=== PATIENT | female | born 1970 | race Caucasian/White ===

== ENCOUNTER 2021-11-25 11:29 | Emergency (ER) | payer MEDICAID ==
[~2021-11-25] VITALS: Ht 165.1 cm; Wt 66.0 kg
[2021-11-25 11:39] VITALS: BP 108/82
[2021-11-25 13:39] LABS: CLARITY URINE CLEAR (CLEAR); COLOR URINE YELLOW (YELLOW); KETONES URINE TRACE (NEGATIVE); LEUKOCYTE ESTERASE URINE NEGATIVE (NEGATIVE); NITRITE URINE NEGATIVE (NEGATIVE); OCCULT BLOOD URINE NEGATIVE (NEGATIVE); PROTEIN URINE NEGATIVE (NEGATIVE); SPECIFIC GRAVITY URINE 1.024 (1.005-1.030); UROBILINOGEN URINE 0.2 E.U./dL (0.2-1.0)
[2021-11-25] MEDS ORDERED: KETOROLAC 60MG/2ML VIAL IM STA (13:48)
[2021-11-25 14:46] LABS: BASOPHILS % 0.5 % (0.0-2.0); EOSINOPHILS % 1.9 % (0.0-5.0); HEMATOCRIT. 42.7 % (36.0-48.0); LYMPHOCYTES % 38.6 % (20.0-50.0); MEAN CORPUSCULAR HEMOGLOBIN 26.1 pg (28.0-32.0); MEAN CORPUSCULAR VOLUME 79.9 fL (81.0-99.0); MEAN PLATELET VOLUME 9.5 fl (7.4-10.4); PLATELET 179 x1000/uL (130-400); RED BLOOD CELL COUNT 5.35 mill/uL (4.2-5.4); RED CELL DISTRIBUTION WIDTH 13.1 % (11.6-14.6)
[2021-11-25 14:56] LABS: CHLORIDE 110 mEq/L (98-107)
[2021-11-25] MEDS ORDERED: CETI10CA11 PO (16:21)
[2021-11-25] MEDS ORDERED: HYDR-4622 TP (16:21)
[2021-11-25] MEDS ORDERED: NAPR-681 PO (16:21)
== END 2021-11-25 17:17 | disposition home or self-care (01) ==
LOC: ER 11:29
DX: M54.50 Low back pain, unspecified (principal); L50.9 Urticaria, unspecified; M19.90 Unspecified osteoarthritis, unspecified site; Z90.710 Acquired absence of both cervix and uterus
CPT/HCPCS: 36415; 72100; 80048; 81003; 85025; 96372; 99284; J1885

== ENCOUNTER 2022-05-27 11:20 | Emergency (ER) | payer MEDICAID ==
[~2022-05-27] VITALS: Ht 157.5 cm; Wt 73.0 kg
[~2022-05-27 11:20] MED LIST: CETI10CA11 PO; HYDR-4622 TP; NAPR-681 PO
[2022-05-27 11:31] VITALS: BP 124/71
[2022-05-27] MEDS ORDERED: ACETAMINOPHEN 325MG TABLET PO ONE (11:45)
[2022-05-27] MEDS ORDERED: IBUPROFEN 600MG TABLET PO ONE (11:45)
[2022-05-27] MEDS ORDERED: TOPUD MT (15:56)
== END 2022-05-27 16:41 | disposition home or self-care (01) ==
LOC: ER 11:20
DX: J11.1 Influenza due to unidentified influenza virus with other respiratory manifestations (principal); J44.9 Chronic obstructive pulmonary disease, unspecified; Z20.822 Contact with and (suspected) exposure to COVID-19
CPT/HCPCS: 71045; 87070; 87426; 87430; 87804; 99284; C9803